=== PATIENT | female | born 1960 | race Caucasian/White ===

== ENCOUNTER 2020-08-10 15:55 | Emergency (ER) | payer BC ==
[~2020-08-10 15:55] MED LIST: CIPRO500 MG PO; NORCO 7.5-3251 EACH PO; ONDANSETRON ODT4 MG PO; PYRIDIUM200 MG PO
[2020-08-10 16:45] LABS: RED BLOOD COUNT 5.08 M/UL (4.00-5.10); WHITE BLOOD COUNT 9.6 K/UL (4.5-11.0)
[2020-08-10 17:13] LABS: BUN/CREATININE RATIO 38 (0-10)
== END 2020-08-10 17:52 | disposition home or self-care (01) ==
LOC: ER1 15:55
PROVIDERS: Emergency Medicine
DX: I48.91 Unspecified atrial fibrillation (principal); I10 Essential (primary) hypertension; K21.9 Gastro-esophageal reflux disease without esophagitis; Z88.0 Allergy status to penicillin; Z88.1 Allergy status to other antibiotic agents
CPT/HCPCS: 71045; 80053; 82550; 82553; 83735; 83874; 83880; 84100; 84439; 84443; 84484; 85025; 85610; 93005; 96374; 99285

== ENCOUNTER → 2021-05-12 | Outpatient (CLI) | payer BC | LOC: HEART 5 08:51 | DX: I48.91 Unspecified atrial fibrillation (principal); I37.1 Nonrheumatic pulmonary valve insufficiency; I27.20 Pulmonary hypertension, unspecified | CPT/HCPCS: 93306 ==

== ENCOUNTER → 2021-07-16 | Outpatient (CLI) | payer BC ==
[~2021-07-16] MED LIST changes: +CLEOCIN HCL300 MG PO; +CYCLOBENZAPRINE10 MG PO; +DILTIAZEM 12HR60 MG PO; +ELIQUIS5 MG PO; +HYDROCODON-ACE1 EAC4 PO; +LEVOFLOXACIN500 MG PO; +LEVOTHYROXINE175 MC1 PO; +LORTAB PO; +MULTI-VITAMIN1 EACH PO; +NEXIUM20 MG PO; +QUINAPRIL-HCTZ1 EACH PO; +SOTALOL80 MG PO; +VITAMIN D21250 MCG PO; +WELLBUTRIN SR150 MG PO
[2021-07-16 10:30] LABS: HEMOGLOBIN 13.2 gm/dl (12.3-15.3); RED BLOOD COUNT 4.53 M/UL (4.00-5.10); WHITE BLOOD COUNT 6.3 K/UL (4.5-11.0)
[2021-07-16 10:52] LABS: BUN/CREATININE RATIO 28 (0-10)
== END ==
LOC: LAB 09:52
PROVIDERS: Internal Medicine Cardiovascular Disease
DX: I48.91 Unspecified atrial fibrillation (principal); I49.5 Sick sinus syndrome
CPT/HCPCS: 36415; 71046; 80048; 85025

== ENCOUNTER → 2021-07-20 | Outpatient (CLI) | payer BC | LOC: CATH 06:58 | DX: I49.5 Sick sinus syndrome (principal); I48.0 Paroxysmal atrial fibrillation; I10 Essential (primary) hypertension; Z87.891 Personal history of nicotine dependence; E03.9 Hypothyroidism, unspecified; I34.0 Nonrheumatic mitral (valve) insufficiency; Z88.0 Allergy status to penicillin; Z88.8 Allergy status to other drugs, medicaments and biological substances; Z79.01 Long term (current) use of anticoagulants; Z79.899 Other long term (current) drug therapy; Z20.822 Contact with and (suspected) exposure to COVID-19 | CPT/HCPCS: 33208; 71045; 93005; 99152; 99153; C1785; C1898; J1644; J2250; J3010; J3370; J7040; J7050 ==